=== PATIENT | female | born 1955 | race Caucasian/White ===

== ENCOUNTER 2019-09-22 13:33 | Inpatient (IN) | payer OTHER ==
[~2019-09-22] VITALS: Ht 170.2 cm; Wt 79.5 kg
--- NOTE | 2019-09-22 13:42 | NUR ---
PT AMBULATES WELL TOWARD ROOM FROM TRIAGE.
[2019-09-22] MEDS ORDERED: MORPHINE SULFATE 4 MG/ML, 1ML ONE ×3 (14:21→18:11)
[2019-09-22] MEDS ORDERED: DICYCLOMINE 10 MG/ML, 2ML ONE (14:21)
[2019-09-22] MEDS ORDERED: SODIUM CHLORIDE FLUSH 10ML SYR IVF ONE (14:30)
[2019-09-22] MEDS ORDERED: SODIUM CHLORIDE 0.9% 1,000ML IVBOLUS ONE (14:30)
[2019-09-22] MEDS ORDERED: DICYCLOMINE 10 MG/ML, 2ML IM ONE (14:30)
[2019-09-22] MEDS: MORPHINE SULFATE 4 MG/ML, 1ML IVPush PRN ×2 (14:47→16:17)
[2019-09-22 16:03] LABS: ALANINE AMINOTRANSFERASE 40 U/L (12-78); ALBUMIN 3.2 g/dL (3.4-5.0); ANION GAP 6 mmol/L (5-15); CHLORIDE 113 mmol/L (98-107); CREATININE 0.98 mg/dL (0.55-1.02)
[2019-09-22 16:06] LABS: ALKALINE PHOSPHATASE 92 U/L (45-117); BILIRUBIN,TOTAL 0.7 mg/dL (0.2-1.0); TOTAL PROTEIN 6.8 g/dL (6.4-8.2)
--- NOTE | 2019-09-22 16:22 | NUR ---
PT TO CT
[2019-09-22] MEDS ORDERED: OMNIPAQUE 350 MG/ML, 100ML BOTTLE ONE (16:31)
[2019-09-22 16:46] LABS: BASOPHILS % (AUTO) 0 % (0-1); EOSINOPHILS % (AUTO) 0 % (1-7); LYMPHOCYTES # (AUTO) 0.29 x10^3/uL (1-3.4); LYMPHOCYTES % (AUTO) 3 % (22-44); MD SCAN; MEAN CORPUSCULAR HEMOGLOBIN 30.8 pg (27.0-34.8); MEAN CORPUSCULAR VOLUME 93.3 fL (80-100); MEAN PLATELET VOLUME 8.4 fL (7.4-10.4); MONOCYTES # (AUTO) 0.51 x10^3/uL (0.2-0.8); MONOCYTES % (AUTO) 4 % (2-9); NEUTROPHILS # (AUTO) 10.87 x10^3/uL (1.8-6.8); NEUTROPHILS % (AUTO) 93 % (42-75); PLATELET COUNT 67 x10^3/uL (130-400); RED BLOOD COUNT 5.09 x10^6/uL (3.82-5.3); RED CELL DISTRIBUTION WIDTH 12.9 % (9.6-15.2)
[2019-09-22] MEDS ORDERED: METRONIDAZOLE PMX 500MG/100ML 100 ML IV ONE (17:00)
[2019-09-22] MEDS ORDERED: CIPROFLOXACIN/PMX 400MG/200ML 200 ML IV ONE (17:00)
[2019-09-22] MEDS ORDERED: CIPROFLOXACIN/PMX 400MG/200ML 200 ML ONE (17:07)
[2019-09-22] MEDS ORDERED: METRONIDAZOLE PMX 500MG/100ML 100 ML ONE (17:07)
[2019-09-22] MEDS ORDERED: CIPROFLOXACIN/PMX 400MG/200ML 200 ML IV SCH (18:00)
[2019-09-22] MEDS ORDERED: METRONIDAZOLE PMX 500MG/100ML 100 ML IV SCH (18:00)
[2019-09-22] MEDS: SODIUM CHLORIDE 0.45% 1,000 ML IV SCH (18:00)
[2019-09-22] MEDS: morphine SULFATE 10 MG/ML, 1ML IVPush PRN (18:16)
[2019-09-22 20:00] VITALS: BP 108/63
[2019-09-23 01:48] VITALS: BP 106/58
[2019-09-23] MEDS: ONDANSETRON 2MG/ML, 2ML IVPush PRN ×2 (03:29→21:59)
[2019-09-23] MEDS: METRONIDAZOLE PMX 500MG/100ML 100 ML IV SCH ×3 (03:29→21:59)
[2019-09-23] MEDS: SODIUM CHLORIDE 0.45% 1,000 ML IV SCH ×2 (03:29→14:42)
[2019-09-23] MEDS: morphine SULFATE 10 MG/ML, 1ML IVPush PRN (03:30)
[2019-09-23 04:17] LABS: CLOSTRIDIUM DIFFICILE ANTIGEN NEGATIVE; CLOSTRIDIUM DIFFICILE TOXIN NEGATIVE (Negative)
[2019-09-23 05:43] LABS: MEAN CORPUSCULAR HEMOGLOBIN 30.4 pg (27.0-34.8); MEAN CORPUSCULAR HGB CONC 32.3 g/dL (32.4-35.8); MEAN CORPUSCULAR VOLUME 94.2 fL (80-100); PLATELET COUNT 194 x10^3/uL (130-400); RED BLOOD COUNT 4.19 x10^6/uL (3.82-5.3)
[2019-09-23 05:45] LABS: ANION GAP 5 mmol/L (5-15); CALCIUM 8.6 mg/dL (8.5-10.1); CHLORIDE 110 mmol/L (98-107); CREATININE 0.77 mg/dL (0.55-1.02)
[2019-09-23] MEDS: CIPROFLOXACIN/PMX 400MG/200ML 200 ML IV SCH ×2 (06:24→19:53)
[2019-09-23 06:45] VITALS: BP 109/71
[2019-09-23 06:49] LABS: MD YES
[2019-09-23 06:50] LABS: BANDS%(MANUAL) 13 % (0-7); LYMPH#(MANUAL) 0.52 x10^3/uL (1-3.4); LYMPHS% (MANUAL) 4 % (22-44); MONOS#(MANUAL) 0.52 x10^3/uL (0.3-2.7); MONOS% (MANUAL) 4 % (2-9); SEG#(MANUAL) 10.35 x10^3/uL (1.8-6.8); SEGS% (MANUAL) 79 % (42-75)
[2019-09-23 06:51] LABS: <PLATELET ESTIMATE> ADEQUATE; <PLT MORPHOLOGY> NORMAL PLT MORPH; <RBC MORPHOLOGY> NORMAL
[2019-09-23 10:57] LABS: CRYPTOSPORIDIUM ANTIGEN Negative (Negative)
[2019-09-23 12:47] VITALS: BP 101/69
[2019-09-23] MEDS ORDERED: KETOROLAC 30 MG/1 ML IVPush PRN (15:00)
[2019-09-23 19:56] VITALS: BP 104/68
[2019-09-24 00:24] VITALS: BP 114/72
[2019-09-24] MEDS: SODIUM CHLORIDE 0.45% 1,000 ML IV SCH ×2 (00:51→14:20)
[2019-09-24] MEDS: ONDANSETRON 2MG/ML, 2ML IVPush PRN ×2 (04:42→22:43)
[2019-09-24] MEDS: morphine SULFATE 10 MG/ML, 1ML IVPush PRN ×2 (05:45→14:20)
[2019-09-24] MEDS: METRONIDAZOLE PMX 500MG/100ML 100 ML IV SCH ×3 (05:48→22:34)
[2019-09-24 06:50] VITALS: BP 104/64
[2019-09-24] MEDS: CIPROFLOXACIN/PMX 400MG/200ML 200 ML IV SCH ×2 (08:37→20:05)
[2019-09-24 12:16] VITALS: BP 131/74
[2019-09-24] MEDS ORDERED: GOLYTELY 4,000ML ORAL.SOL PO SCH (17:00)
[2019-09-24 19:56] VITALS: BP 142/84
[2019-09-25] MEDS ORDERED: PROMETHAZINE 25 MG/ML, 1ML IM PRN (01:00)
[2019-09-25 01:15] VITALS: BP 130/77
[2019-09-25] MEDS ORDERED: GOLYTELY 4,000ML ORAL.SOL PO SCH (02:00)
[2019-09-25] MEDS: SODIUM CHLORIDE 0.45% 1,000 ML IV SCH ×2 (04:34→21:20)
[2019-09-25] MEDS: METRONIDAZOLE PMX 500MG/100ML 100 ML IV SCH ×3 (06:12→22:09)
[2019-09-25 07:00] VITALS: BP 121/71
[2019-09-25] MEDS: ONDANSETRON 2MG/ML, 2ML IVPush PRN (07:47)
[2019-09-25] MEDS: CIPROFLOXACIN/PMX 400MG/200ML 200 ML IV SCH ×2 (07:47→20:02)
[2019-09-25 13:21] VITALS: BP 135/75
[2019-09-25] MEDS ORDERED: PROPOFOL 10 MG/ML, 20ML ONE (15:46)
[2019-09-25] MEDS ORDERED: FENTANYL PF 100 MCG/2ML IV PRN (16:30)
[2019-09-25] MEDS ORDERED: ALBUTEROL SULFATE 2.5 MG/3 ML NPPB PRN (16:30)
[2019-09-25] MEDS ORDERED: ONDANSETRON 2MG/ML, 2ML IVPush PRN (16:30)
[2019-09-25] MEDS ORDERED: EPHEDRINE 50 MG/ML, 1ML IVPush PRN (16:30)
[2019-09-25] MEDS ORDERED: hydrALAzine 20 MG/ML, 1ML IV PRN (16:30)
[2019-09-25] MEDS ORDERED: MEPERIDINE/PF 25MG/0.5ML IVPush PRN (16:30)
[2019-09-25] MEDS ORDERED: PROMETHAZINE 25 MG/ML, 1ML IVPush PRN (16:30)
[2019-09-25] MEDS ORDERED: DIAZEPAM 5 MG/ML, 2ML IVPush PRN (16:30)
[2019-09-25] MEDS ORDERED: OXYcodone 5 MG/5 ML ORAL.SOL UDC PO PRN (16:30)
[2019-09-25] MEDS ORDERED: HYDROmorphone 1 MG/ML, 1ML INJ IVPush PRN (16:30)
[2019-09-25] MEDS ORDERED: MIDAZOLAM 1 MG/ML, 2ML IV PRN (16:30)
[2019-09-25] MEDS ORDERED: DIPHENHYDRAMINE 50 MG/ML, 1ML IVPush PRN (16:30)
[2019-09-25] MEDS ORDERED: LABETALOL 5MG/ML, 20ML IV PRN (16:30)
[2019-09-25] MEDS ORDERED: HYDROmorphone 1 MG/ML, 1ML INJ ONE (17:01)
[2019-09-25] MEDS: PANTOPRAZOLE 40 MG IV IVPush SCH (18:13)
[2019-09-25 18:46] VITALS: BP 127/79
[2019-09-26 01:57] VITALS: BP 100/55
[2019-09-26] MEDS: PANTOPRAZOLE 40 MG IV IVPush SCH ×2 (04:19→17:04)
[2019-09-26] MEDS: METRONIDAZOLE PMX 500MG/100ML 100 ML IV SCH ×3 (05:41→22:04)
[2019-09-26 05:45] LABS: ALANINE AMINOTRANSFERASE 23 U/L (12-78); ALBUMIN 2.6 g/dL (3.4-5.0); ANION GAP 5 mmol/L (5-15); CALCIUM 8.5 mg/dL (8.5-10.1); CHLORIDE 106 mmol/L (98-107); CREATININE 0.74 mg/dL (0.55-1.02)
[2019-09-26 05:47] LABS: ALKALINE PHOSPHATASE 71 U/L (45-117); BILIRUBIN,TOTAL 0.7 mg/dL (0.2-1.0); TOTAL PROTEIN 6.3 g/dL (6.4-8.2)
[2019-09-26 06:09] LABS: MEAN CORPUSCULAR HEMOGLOBIN 30.8 pg (27.0-34.8); MEAN CORPUSCULAR HGB CONC 33.1 g/dL (32.4-35.8); MEAN CORPUSCULAR VOLUME 93.3 fL (80-100); MEAN PLATELET VOLUME 7.8 fL (7.4-10.4); PLATELET COUNT 262 x10^3/uL (130-400); RED BLOOD COUNT 4.13 x10^6/uL (3.82-5.3)
[2019-09-26 06:27] VITALS: BP 109/63
[2019-09-26 07:34] LABS: MD YES
[2019-09-26 07:37] LABS: <PLATELET ESTIMATE> ADEQUATE; <PLT MORPHOLOGY> NORMAL PLT MORPH; <RBC MORPHOLOGY> NORMAL; BAND#(MANUAL) 0.62 x10^3/uL; BANDS%(MANUAL) 8 % (0-7); LYMPH#(MANUAL) 1.17 x10^3/uL (1-3.4); LYMPHS% (MANUAL) 15 % (22-44); MONOS#(MANUAL) 0.23 x10^3/uL (0.3-2.7); MONOS% (MANUAL) 3 % (2-9); SEG#(MANUAL) 5.77 x10^3/uL (1.8-6.8); SEGS% (MANUAL) 74 % (42-75)
[2019-09-26] MEDS: CIPROFLOXACIN/PMX 400MG/200ML 200 ML IV SCH ×2 (07:37→20:13)
[2019-09-26] MEDS: SODIUM CHLORIDE 0.45% 1,000 ML IV SCH ×2 (10:58→20:13)
[2019-09-26 12:47] VITALS: BP 129/77
[2019-09-26 19:17] VITALS: BP 153/90
[2019-09-27 01:19] VITALS: BP 116/74
[2019-09-27] MEDS: PANTOPRAZOLE 40 MG IV IVPush SCH (04:11)
[2019-09-27] MEDS: METRONIDAZOLE PMX 500MG/100ML 100 ML IV SCH ×2 (05:42→14:27)
[2019-09-27] MEDS: SODIUM CHLORIDE 0.45% 1,000 ML IV SCH (05:42)
[2019-09-27 07:09] LABS: BASOPHILS # (AUTO) 0.02 x10^3/uL (0-0.1); BASOPHILS % (AUTO) 0 % (0-1); EOSINOPHILS # (AUTO) 0.02 x10^3/uL (0-0.4); EOSINOPHILS % (AUTO) 0 % (1-7); LYMPHOCYTES # (AUTO) 1.27 x10^3/uL (1-3.4); LYMPHOCYTES % (AUTO) 19 % (22-44); MD NO; MEAN CORPUSCULAR HEMOGLOBIN 30.8 pg (27.0-34.8); MEAN CORPUSCULAR HGB CONC 33.1 g/dL (32.4-35.8); MEAN CORPUSCULAR VOLUME 93.3 fL (80-100); MEAN PLATELET VOLUME 7.3 fL (7.4-10.4); MONOCYTES # (AUTO) 0.81 x10^3/uL (0.2-0.8); MONOCYTES % (AUTO) 12 % (2-9); NEUTROPHILS # (AUTO) 4.45 x10^3/uL (1.8-6.8); NEUTROPHILS % (AUTO) 68 % (42-75); PLATELET COUNT 218 x10^3/uL (130-400); RED BLOOD COUNT 3.57 x10^6/uL (3.82-5.3); RED CELL DISTRIBUTION WIDTH 12.9 % (9.6-15.2)
[2019-09-27 07:16] LABS: ANION GAP 6 mmol/L (5-15); CALCIUM 8.5 mg/dL (8.5-10.1); CHLORIDE 111 mmol/L (98-107); CREATININE 0.72 mg/dL (0.55-1.02)
[2019-09-27 07:49] VITALS: BP 106/68
[2019-09-27] MEDS: CIPROFLOXACIN/PMX 400MG/200ML 200 ML IV SCH (08:14)
[2019-09-27] MEDS ORDERED: POTASSIUM CHLORIDE 40 MEQ in SODIUM CHLORIDE 0.9% 500 ML IV ONE (09:00)
[2019-09-27] MEDS: OMEPRAZOLE 20 MG CAPSULE.DR PO SCH ×2 (09:51→16:40)
[2019-09-27 14:42] VITALS: BP 111/64
[2019-09-27] MEDS ORDERED: OMEP-110 PO (15:06)
[2019-09-27] MEDS ORDERED: OMEPRAZOLE 20 MG CAPSULE.DR PO SCH (16:00)
== END 2019-09-27 19:50 | disposition home or self-care (01) | DRG 381 ==
LOC: ED 16:03 → EDIP 17:06 → 4NE 19:53 → 3N 09-23 12:59
PROVIDERS: ADMIT Internal Medicine; ATTEND Hospitalist
PROC: 0DB68ZX Excision of Stomach, Via Natural or Artificial Opening Endoscopic, Diagnostic (ICD-10-PCS; 2019-09-25)
PROC: 0DB58ZX Excision of Esophagus, Via Natural or Artificial Opening Endoscopic, Diagnostic (ICD-10-PCS; 2019-09-25)
PROC: 0DBE8ZX Excision of Large Intestine, Via Natural or Artificial Opening Endoscopic, Diagnostic (ICD-10-PCS; 2019-09-25)
PROC: 0DB98ZX Excision of Duodenum, Via Natural or Artificial Opening Endoscopic, Diagnostic (ICD-10-PCS; principal; 2019-09-25 15:30)
DX: K22.11 Ulcer of esophagus with bleeding (principal); A09 Infectious gastroenteritis and colitis, unspecified; K26.4 Chronic or unspecified duodenal ulcer with hemorrhage; K57.31 Diverticulosis of large intestine without perforation or abscess with bleeding; D69.6 Thrombocytopenia, unspecified; K21.0 Gastro-esophageal reflux disease with esophagitis; K44.9 Diaphragmatic hernia without obstruction or gangrene; K64.4 Residual hemorrhoidal skin tags; K64.8 Other hemorrhoids; M81.0 Age-related osteoporosis without current pathological fracture; Z20.828 Contact with and (suspected) exposure to other viral communicable diseases; Z80.1 Family history of malignant neoplasm of trachea, bronchus and lung; Z80.3 Family history of malignant neoplasm of breast; Z88.0 Allergy status to penicillin; Z88.2 Allergy status to sulfonamides
CPT/HCPCS: 36415; 74177; 80048; 80053; 83605; 83690; 83735; 85014; 85018; 85025; 87040; 87046; 87324; 87328; 87329; 87338; 87635; 88305; 88312; 88342; 89055; 93005; 96361; 96372; 96374; 96375; 96376; G0378; J0744; J1170; J1885; J2405; J2550; J2704; J3480; Q9967; C9113; J0500; J2270; J7030; J7040